=== PATIENT | male | born 1940 | race Caucasian/White ===

== ENCOUNTER 2024-01-05 08:51 | Day surgery (SDC) | payer MEDICARE ==
[~2024-01-05] VITALS: Ht 177.8 cm; Wt 87.2 kg
[~2024-01-05 08:51] MED LIST: FLEC100T35; L.AC1CAP6 PO; MEMORY SUPPLEMENT PO; OMEG1CAP46 PO; RIVA20TA PO
[2024-01-05 09:44] VITALS: BP 155/97; PULSE 67; RESP 15
[2024-01-05] MEDS ORDERED: diphenhydrAMINE 50 mg/ml inj ONE (09:55)
[2024-01-05] MEDS ORDERED: fentaNYL/PF 50MCG/1 ML 2ML syringe ONE (09:55)
[2024-01-05] MEDS ORDERED: MIDAZolam 1 MG/ML 5ML VIAL ONE (09:55)
[2024-01-05 10:47] VITALS: BP 124/59; PULSE 62; RESP 16; O2SAT 98
[2024-01-05 10:57] VITALS: BP 122/52; PULSE 60; RESP 16; O2SAT 98
[2024-01-05 11:07] VITALS: BP 116/60; PULSE 50; RESP 16; O2SAT 96
[2024-01-05 11:17] VITALS: BP 117/65; PULSE 48; RESP 16; O2SAT 96
== END 2024-01-05 11:20 | disposition home or self-care (01) ==
LOC: GI LAB 08:51
PROVIDERS: ATTEND Internal Medicine Gastroenterology
DX: K92.1 Melena (principal); D12.2 Benign neoplasm of ascending colon; K64.8 Other hemorrhoids; K57.30 Diverticulosis of large intestine without perforation or abscess without bleeding; K29.80 Duodenitis without bleeding; K29.50 Unspecified chronic gastritis without bleeding
CPT/HCPCS: 43239; 45385; 99153; A4620; C1889; G0500; J1200; J2250; J3010; J7030; Z7512; 88305; 99152